=== PATIENT | male | born 1995 | race Caucasian/White ===

== ENCOUNTER 2020-09-20 16:12 | Emergency (ER) | payer OTHER ==
[~2020-09-20] VITALS: Ht 177.8 cm; Wt 132.0 kg
[2020-09-20 17:19] VITALS: Ht 177.8 cm; Wt 132.0 kg
[2020-09-20] MEDS ORDERED: CLONIDINE HYDR0.1 M1 PO (18:03)
[2020-09-20] MEDS ORDERED: TENORMIN50 MG PO (18:03)
[2020-09-20] MEDS ORDERED: MELOXICAM15 M1 PO ×2 (18:03→18:09)
[2020-09-20] MEDS ORDERED: ATA25 PO (18:03)
[2020-09-20] MEDS ORDERED: ATIVAN0.5 M1 PO (18:04)
[2020-09-20] MEDS ORDERED: KLONOPIN0.5 MG PO (18:06)
[2020-09-20] MEDS ORDERED: CYMBALTA20 M1 PO (18:07)
[2020-09-20] MEDS ORDERED: NASAL MIST126 ML (18:07)
[2020-09-20] MEDS ORDERED: IMODIUM A-D2 M3 PO (18:07)
[2020-09-20] MEDS ORDERED: KLOR-CON M2020 MEQ PO (18:11)
[2020-09-20 18:18] LABS: microscopic required? NO
[2020-09-20 18:31] VITALS: BP 138/79
[2020-09-20 18:48] LABS: urine erythrocyte NEGATIVE (NEGATIVE)
[2020-09-20 18:54] LABS: BASOPHIL % 0.3 % (0.2-1.5); PLATELET COUNT 273 x10^3mcL (152-348); RED CELL DISTRIBUTION WIDTH 12.9 % (12.1-16.2)
[2020-09-20 18:56] LABS: AMPHETAMINE QUAL UR NONE DETECTED (See below)
[2020-09-20 20:23] LABS: CARBON DIOXIDE 25.8 mmol/L (21-32); CHLORIDE SERUM 104 mmol/L (98-107); CREATININE SERUM 0.9 mg/dL (0.7-1.3); GFR1 > 60 mL/min; GLUCOSE SERUM 98 mg/dL (74-106); POTASSIUM SERUM 3.1 mmol/L (3.5-5.1); SODIUM SERUM 143 mmol/L (136-145)
[2020-09-20 20:28] LABS: ALBUMIN 4.1 g/dL (3.4-5.0); ALKALINE PHOSPHATASE 105 U/L (46-116); ALT/SGPT 168 U/L (16-63); AST/SGOT 111 U/L (15-37); BILIRUBIN TOTAL 0.98 mg/dL (0.20-1.00); CHOLESTEROL 166 mg/dL (<200); LIPASE 252 IU/L (73-393); MAGNESIUM 2.3 mg/dL (1.8-2.4)
[2020-09-20 20:32] LABS: TOTAL PROTEIN, SERUM 8.9 g/dL (6.4-8.2)
[2020-09-20 20:33] LABS: HDL CHOLESTEROL 29 mg/dL (40-60)
== END 2020-09-20 23:45 | disposition home or self-care (01) ==
LOC: ED 16:12
PROVIDERS: Emergency Medicine
DX: R07.89 Other chest pain (principal); I10 Essential (primary) hypertension; E66.9 Obesity, unspecified; Z68.41 Body mass index [BMI] 40.0-44.9, adult; Z20.828 Contact with and (suspected) exposure to other viral communicable diseases; Z90.49 Acquired absence of other specified parts of digestive tract; Z88.8 Allergy status to other drugs, medicaments and biological substances
CPT/HCPCS: 83880; J1940; J3490; U0003